=== PATIENT | female | born 1960 | race African-American/Black ===

== ENCOUNTER 2024-05-22 10:38 | Emergency (ER) | payer SELFPAY ==
[~2024-05-22] VITALS: Ht 167.6 cm; Wt 55.0 kg
[2024-05-22 10:41] VITALS: O2SAT 98
[2024-05-22 11:25] VITALS: BP 145/94; PULSE 106; RESP 16; TEMP 36.89184; O2SAT 98
[2024-05-22] MEDS: SODIUM CHLORIDE 0.9% 1,000 ML IV ONE (12:03)
== END 2024-05-22 14:45 | disposition left against medical advice (07) ==
LOC: ER 10:43 → EDBEDREQ 12:32 → ER 14:45
DX: G93.40 Encephalopathy, unspecified (principal); R41.82 Altered mental status, unspecified
CPT/HCPCS: 99284; 70450; 71045; J7030